=== PATIENT | male | born 1975 | race African-American/Black ===

== ENCOUNTER → 2016-12-03 | Outpatient (CLI) | payer BC ==
--- NOTE | 2016-12-04 09:31 | SLEEP ---
DATE OF STUDY: 12/04/2016 ATTENDING PHYSICIAN: Dr. Garrett Kelley. HISTORY OF PRESENT ILLNESS: The patient is 41 years old who weighs 290 pounds and is 70 inches tall with a BMI of 41.6. Home sleep study was performed by [facility]. The patient's Dilley score was 17. Total recording time was 360 minutes. During this time, the patient had no central apneas, but 111 obstructive apneas and no mixed apneas. There were 10 hypopneas. The patient's apnea hypopnea index was 20 per hour, supine index 7 per hour. Nocturnal oximetry study revealed an 11.6 minutes were spent in oxygen saturation of less than 90% with an average of 93% and the lowest of 80%. Mean heart rate was 83 beats per minute. IMPRESSION: 1. Moderate sleep apnea-hypopnea syndrome with an AHI of 20 per hour. 2. Mild nocturnal hypoxia secondary to obstructive sleep apnea. RECOMMENDATIONS: 1. The patient would benefit from in-lab CPAP titration study. 2. Once optimum CPAP pressure is achieved then follow up in 4-6 weeks to assess compliance with CPAP and to document clinical improvement. 3. Weight loss is strongly advised. 4. Avoid [employer] depressants. 5. Caution regarding driving until symptoms of sleep apnea resolve with the use of CPAP. ANTHONY KHALIL MD DR: AVELINO/armida JOB#: [id number] / [id number] ecc Dr. Garrett Kelley, . [facility]
== END | disposition home or self-care (01) ==
LOC: RT 08:05
PROVIDERS: ATTEND Family Medicine
DX: R06.83 Snoring (principal); R53.83 Other fatigue
CPT/HCPCS: G0399

== ENCOUNTER → 2017-01-02 | Outpatient (CLI) | payer BC | END | disposition home or self-care (01) | LOC: RT 18:33 | PROVIDERS: ATTEND Family Medicine | DX: G47.33 Obstructive sleep apnea (adult) (pediatric) (principal) | CPT/HCPCS: 95810 ==